=== PATIENT | female | born 1935 | race Caucasian/White ===

== ENCOUNTER → 2020-06-29 09:30 | Oncology outpatient (ONC) | payer OTHER, SELFPAY ==
--- NOTE | 2019-08-13 15:02 | ONC.MSW ---
Description: Initial Navigation T/C Activity: Called pt to introduce myself as the ONC navigator/CIVIL PROCESS SERVER, explain role of navigation, confirm that we have received her referral, and confirmed a time for her first initial consult visit w/Dr. Lu next , check-in time 1:00pm. She had no immediate needs at this time.
[2019-08-19 13:57] VITALS: BP 139/63; PULSE 51; RESP 18; TEMP 36.8; O2SAT 100
--- NOTE | 2019-08-19 14:18 | P.CONONC_ITS ---
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 Right hemicolectomy on August 01, 2019 History of present illness: Oscar Luna is a 83 year old female who is referred for further evaluation of a newly diagnosed colon cancer. Patient reports that she was hospitalized about a year ago with problem with her common bile duct and pancreas. Since that time, she has had intermittent abdominal pain involving the right upper quadrant and also the right mid to lower abdomen. She was seen by her primary physician. When symptoms did not improve, she presented to the emergency room. She had a CT scan done that showed an intussusception at the terminal ileum. A malignancy could not be excluded. She was transferred to [facility] and underwent right hemicolectomy a couple days later. Pathology from that specimen showed a 1.5 cm carcinoma was associated with a 3.2 cm adenoma. There was focal invasion of the muscularis propria. Fourteen lymph nodes were sampled all of which were negative. Postoperatively, she has had ongoing pain in the abdomen. She is taking ibuprofen or Aleve at bedtime which seems to be relieving it. Her appetite has been a little bit low. She has lost about 50 lb over the last 2 years that she attributes to poor food. She does not have much of an appetite. She denies any nausea or vomiting. She has been having 2-3 loose stools a day. She has not noticed any blood in the stool. For past medical history is notable for coronary artery disease. She has had a prior bypass. She has had a carotid endarterectomy. She has a history of type 2 diabetes and COPD. She has hyperlipidemia. She has had prior hip fracture. She has had prior spine surgery and appendectomy. Her family history is negative for colon cancer or any other malignancy. Social history: She is retired. 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 She worked with the [employer] in [place]. She quit smoking about 30 years ago. She does have occasional alcohol use. CC: Riccardo Lu MD Home Medications and Allergies Home Medications Medication Instructions Recorded Confirmed Type Fish Oil (FISH OIL~) 1,200 mg PO QDAY #0 02/18/13 08/19/19 History allopurinol 300 mg PO Q DAY #0 02/18/13 08/19/19 History cholecalciferol (vitamin D3) 2,000 unit PO QDAY #0 02/18/13 08/19/19 History [Vitamin D3] apremilast [Otezla] 30 mg PO QAM AND QPM 08/19/19 08/19/19 History hydroxyzine HCl 10 mg PO TID PRN 08/19/19 08/19/19 History levothyroxine 50 mcg PO DAILY 08/19/19 08/19/19 History Allergies Allergy/AdvReac Type Severity Reaction Status Date / Time fentanyl Allergy Severe Unconscious Verified 08/19/19 13:52 SULFA (SULFONAMIDE) Allergy Severe THROAT Uncoded 12/19/17 12:12 SWELLING PENICILLIN Allergy Unknown HIVES Uncoded 12/19/17 12:12 Review of Systems Constitutional: weight loss, decreased activity level Cardiovascular: dyspnea on exertion, no chest pain Respiratory: no shortness of breath Gastrointestinal: change in appetite, abdominal pain, diarrhea Musculoskeletal: pain Hematologic/Lymphatic: no anemia, no enlarged lymph nodes Exam Vital signs: Vital Signs Temp Pulse Resp BP Pulse Ox 08/19/19 13:57 98.2 F 51 L 18 139/63 100 Intake and Output 08/18/19 08/19/19 08/19/19 23:59 07:59 15:59 Other: Weight 62.3 kg Patient Weight 08/19/19 23:59 Weight 62.3 kg - Constitutional positive no acute distress, positive average body habitus - Routine HEENT Exam Head: Present: normocephalic, atraumatic Eye: Present: EOMI, PERRL. Absent: conjunctival icterus, scleral injection ENT: Present: mucous membranes moist, oropharynx clear - Routine Neck Exam Present: supple. Absent: lymphadenopathy, thyromegaly - Routine Respiratory Exam Present: Clear to auscultation bilaterally. Absent: rales, wheezes - Routine Cardiovascular Exam Present: RRR, S1, S2. Absent: murmur - Routine Abdominal Exam Present: soft, normoactive bowel sounds. Absent: tenderness, organomegaly, mass Comments: Her surgical incision seem to be healing well. She does have a little bit of erythema around her umbilical incision. I do not see any purulence. - Routine Extremities Exam Absent: cyanosis, clubbing, edema - Routine Back/Spine Exam Back/Spine: Absent: vertebral tenderness - Routine Skin Exam Present: intact. Absent: petechiae, rash - Routine Neurological Exam Present: alert, oriented X3 - Routine Psychiatric Exam Present: normal affect, normal thought process Assessment and Plan (1) Colon cancer Current visit: Yes Status: Acute A 83-year-old woman with a new diagnosis of stage I colon cancer. She is recovering reasonably well from her surgery. Because her disease was stage I, there is no role for adjuvant chemotherapy. Instead she will return to clinic in about 3 months for follow-up CEA. If she is doing well, we will probably check CEAs every 6 months for the 1st couple of years. She has a low enough risk of recurrence that routine CT scan would not be recommended. She will be due for colonoscopy in about a year.
--- NOTE | 2019-08-19 16:11 | ONC.SCHED ---
Left msg. for patient to schedule his f/u in November 2019
[2019-11-18 12:56] LABS: Add Manual Diff / Slide Review NO; Basophils Absolute Auto 100 /uL (0-100); Basophils Percent Auto 1.2 % (0-2); Eosinophils Absolute Auto 700 /uL (0-450); Eosinophils Percent Auto 11.8 % (2-4); Hematocrit 44.5 % (36-46); Hemoglobin 14.6 g/dL (12.0-16.0); Lymphocytes Absolute Auto 1700 /uL (1100-4500); Lymphocytes Percent Auto 29.5 % (25-40); Mean Corpuscular HGB Conc 32.8 % (30-36); Mean Corpuscular Volume 100.6 fL (80-100); Monocytes Absolute Auto 400 /uL (0-900); Monocytes Percent Auto 7.5 % (3-14); Neutrophils Absolute Auto 2900 /uL (1500-7000); Platelet Count 211 X10^3/uL (150-400); Red Blood Cell Count 4.43 X10^6/uL (4.0-5.2); Red Cell Distribution Width 15.8 % (11.6-14.8); White Blood Cell Count 5.9 X10^3/uL (4.5-11.0)
[2019-11-18 13:05] LABS: Alanine Aminotransferase 11 IU/L (<35); Albumin 4.5 g/dL (3.5-5.0); Albumin Globulin Ratio 1.5 (1.0-2.8); Alkaline Phosphatase 89 U/L (38-126); Aspartate Aminotransferase 26 IU/L (14-36); BUN Creatinine Ratio 21.9 (6-22); Bilirubin Total 0.4 mg/dL (0.2-1.3); Blood Urea Nitrogen 25 mg/dL (7-17); Calcium 10.1 mg/dL (8.4-10.2); Carbon Dioxide 27 mmol/L (22-32); Chloride 107 mmol/L (98-107); Estimated Glomerular Filt Rate 45.5 mL/min (>60); Glucose 138 mg/dL (80-110); HEMOLYSIS < 15 (0-50); Potassium 4.4 mmol/L (3.4-5.1); Sodium 141 mmol/L (137-145); Total Protein 7.5 g/dL (6.3-8.2)
[2019-11-18 13:34] LABS: Carcinoembryonic Antigen 3.3 ng/mL (0.1-3.0)
[2019-11-18 13:41] VITALS: BP 153/80; PULSE 64; RESP 18; TEMP 36.9; O2SAT 96
--- NOTE | 2019-11-18 13:52 | ONC.PN ---
PN -Subjective Interval history: Identification and Chief Complaint: 84 year old female with stage I colon cancer here for scheduled follow-up visit. History of Present Illness: Oscar Luna is a 84 year old female. She presented with intermittent abdominal pain involving the right upper quadrant and the right mid to lower abdomen for 1-2 years. When symptoms did not improve, she presented to the emergency room. She had a CT scan done that showed an intussusception at the terminal ileum. A malignancy could not be excluded. She was transferred to [place] and underwent right hemicolectomy on 08/01/2019. Pathology from that specimen showed a 1.5 cm carcinoma associated with a 3.2 cm adenoma. There was focal invasion of the muscularis propria. Fourteen lymph nodes were sampled all of which were negative. Interim Events: Since her previous visit with Dr. Lu, patient reported that she has been doing well without any new signs or symptoms. Patient especially denies any she nausea or vomiting. No abdominal pain. Patient does report diarrhea watery once a week with cramps in the lower abdomen. She denies any blood in the stool. Summary of Treatments: Right hemicolectomy on 08/01/2019 - Patient Self-Reported Symptoms SR Constitution: Night Sweats SR ears, nose, mouth, throat issues: Ears ringing, Congestion SR Skin issues: Dry skin SR Gastrointestinal issues: Diarrhea SR Endocrine issues: Cold intolerance - Additional ROS All systems PM: reviewed and no additional remarkable complaints except as stated Home Medications and Allergies Home Medications Medication Instructions Recorded Confirmed Type Fish Oil (FISH OIL~) 1,200 mg PO QDAY #0 02/18/13 11/18/19 History allopurinol 300 mg PO Q DAY #0 02/18/13 11/18/19 History cholecalciferol (vitamin D3) 2,000 unit PO QDAY #0 02/18/13 11/18/19 History [Vitamin D3] hydroxyzine HCl 10 mg PO TID PRN 08/19/19 11/18/19 History levothyroxine 50 mcg PO DAILY 08/19/19 11/18/19 History Allergies Allergy/AdvReac Type Severity Reaction Status Date / Time fentanyl Allergy Severe Unconscious Verified 08/19/19 13:52 SULFA (SULFONAMIDE) Allergy Severe THROAT Uncoded 12/19/17 12:12 SWELLING PENICILLIN Allergy Unknown HIVES Uncoded 12/19/17 12:12 Exam Vital signs: Last Vital Signs Temp 98.4 F 11/18/19 13:41 Pulse 64 11/18/19 13:41 Resp 18 11/18/19 13:41 BP 153/80 H 11/18/19 13:41 Pulse Ox 96 11/18/19 13:41 Narrative: ECOG 1 Gen: WDWN, NAD, pleasant and cooperative. Here by herself HEENT: NCAT, EOMI, PERRLA, anicteric sclera. Neck: Supple, No palpable thyromegaly or lymphadenopathy. Respiratory: CTAB, no wheezes audible. No JVD Cardiovascular: RRR, S1 and S2 normal, no M/G/R. Abdomen: Soft, NTND, BS normal, no palpable organomegaly Extremities: No LE pitting edema. Lymphatic: no palpable lymph nodes in the neck, axillae,. Neurological: AOx3, CN II-XII grossly intact. No focal motor or sensory deficit. Psychiatric: Normal affect, appropriate mood, no depression, no anxiety. Results - Labs Laboratory Last Values WBC 5.9 X10^3/uL (4.5-11.0) 11/18/19 12:11 RBC 4.43 X10^6/uL (4.0-5.2) 11/18/19 12:11 Hgb 14.6 g/dL (12.0-16.0) 11/18/19 12:11 Hct 44.5 % (36-46) 11/18/19 12:11 MCV 100.6 fL (80-100) H 11/18/19 12:11 MCH 33.0 PG (26-34) 11/18/19 12:11 MCHC 32.8 % (30-36) 11/18/19 12:11 RDW 15.8 % (11.6-14.8) H 11/18/19 12:11 Plt Count 211 X10^3/uL (150-400) 11/18/19 12:11 Neut % (Auto) 50.0 % (50-75) 11/18/19 12:11 Lymph % (Auto) 29.5 % (25-40) 11/18/19 12:11 Christian % (Auto) 7.5 % (3-14) 11/18/19 12:11 Eos % (Auto) 11.8 % (2-4) H 11/18/19 12:11 Baso % (Auto) 1.2 % (0-2) 11/18/19 12:11 Neut # (Auto) 2900 /uL (6030-4848) 11/18/19 12:11 Lymph # (Auto) 1700 /uL (8675-0444) 11/18/19 12:11 Christian # (Auto) 400 /uL (0-900) 11/18/19 12:11 Eos # (Auto) 700 /uL (0-450) H 11/18/19 12:11 Baso # (Auto) 100 /uL (0-100) 11/18/19 12:11 Sodium 141 mmol/L (137-145) 11/18/19 12:11 Potassium 4.4 mmol/L (3.4-5.1) 11/18/19 12:11 Chloride 107 mmol/L (98-107) 11/18/19 12:11 Carbon Dioxide 27 mmol/L (22-32) 11/18/19 12:11 BUN 25 mg/dL (7-17) H 11/18/19 12:11 Creatinine 1.14 mg/dL (0.52-1.04) H 11/18/19 12:11 Estimated GFR 45.5 mL/min (>60) L 11/18/19 12:11 BUN/Creatinine Ratio 21.9 (6-22) 11/18/19 12:11 Glucose 138 mg/dL (80-110) H 11/18/19 12:11 Calcium 10.1 mg/dL (8.4-10.2) 11/18/19 12:11 Total Bilirubin 0.4 mg/dL (0.2-1.3) 11/18/19 12:11 AST 26 IU/L (14-36) 11/18/19 12:11 ALT 11 IU/L (<35) 11/18/19 12:11 Alkaline Phosphatase 89 U/L (38-126) 11/18/19 12:11 Total Protein 7.5 g/dL (6.3-8.2) 11/18/19 12:11 Albumin 4.5 g/dL (3.5-5.0) 11/18/19 12:11 Globulin 3.0 g/dL (1.7-4.1) 11/18/19 12:11 Albumin/Globulin Ratio 1.5 (1.0-2.8) 11/18/19 12:11 Carcinoembryonic Ag 3.3 ng/mL (0.1-3.0) H 11/18/19 12:11 Assessment and Plan (1) Colon cancer Overview: Oscar Luna is a 84 year old female. She presented with intermittent abdominal pain involving the right upper quadrant and the right mid to lower abdomen fr 1-2 years. When symptoms did not improve, she presented to the emergency room, and was found to have an intussusception at the terminal ileum on CT scan. She underwent right hemicolectomy on 08/01/2019. Pathology from that specimen showed a 1.5 cm carcinoma was associated with a 3.2 cm adenoma. There was focal invasion of the muscularis propria. Fourteen lymph nodes were sampled all of which were negative. Assessment: I reviewed the laboratory tests with the patient. No anemia noted. The CEA level was 3.3 compared to 5.4 right after the surgery. Talked with her that I will continue current active surveillance. Patient is due for a colonoscopy in May. I talked with her that when she comes back, I will order colonoscopy. She voiced understanding. Plan: RTC in 6 months, CBC, CMP, CEA
[2020-06-16 09:55] LABS: Add Manual Diff / Slide Review NO; Basophils Absolute Auto 100 /uL (0-100); Basophils Percent Auto 1.2 % (0-2); Eosinophils Absolute Auto 400 /uL (0-450); Eosinophils Percent Auto 6.9 % (2-4); Hematocrit 39.5 % (36-46); Hemoglobin 13.1 g/dL (12.0-16.0); Lymphocytes Absolute Auto 1500 /uL (1100-4500); Lymphocytes Percent Auto 29.1 % (25-40); Mean Corpuscular HGB Conc 33.1 % (30-36); Mean Corpuscular Hemoglobin 32.3 PG (26-34); Mean Corpuscular Volume 97.7 fL (80-100); Monocytes Absolute Auto 500 /uL (0-900); Monocytes Percent Auto 8.9 % (3-14); Neutrophils Absolute Auto 2900 /uL (1500-7000); Neutrophils Percent Auto 53.9 % (50-75); Platelet Count 192 X10^3/uL (150-400); Red Blood Cell Count 4.05 X10^6/uL (4.0-5.2); Red Cell Distribution Width 14.4 % (11.6-14.8); White Blood Cell Count 5.3 X10^3/uL (4.5-11.0)
[2020-06-16 10:14] LABS: Alanine Aminotransferase 11 IU/L (<35); Albumin Globulin Ratio 1.5 (1.0-2.8); Alkaline Phosphatase 73 U/L (38-126); Aspartate Aminotransferase 24 IU/L (14-36); BUN Creatinine Ratio 22.4 (6-22); Bilirubin Total 0.5 mg/dL (0.2-1.3); Blood Urea Nitrogen 32 mg/dL (7-17); Carbon Dioxide 30 mmol/L (22-32); Chloride 103 mmol/L (98-107); Globulin 2.6 g/dL (1.7-4.1); Glucose 106 mg/dL (80-110); HEMOLYSIS < 15 (0-50); Potassium 4.9 mmol/L (3.4-5.1); Sodium 137 mmol/L (137-145); Total Protein 6.6 g/dL (6.3-8.2)
[2020-06-16 10:44] LABS: Carcinoembryonic Antigen 2.6 ng/mL (0.1-3.0)
[2020-06-29 10:22] VITALS: BP 135/67; PULSE 80; RESP 16; O2SAT 100
--- NOTE | 2020-06-29 10:59 | ONC.PN ---
PN -Subjective Interval history: Identification and Chief Complaint: 84 year old female with stage I colon cancer here for scheduled follow-up visit. History of Present Illness: Oscar Luna is a 84 year old female. She presented with intermittent abdominal pain involving the right upper quadrant and the right mid to lower abdomen for 1-2 years. When symptoms did not improve, she presented to the emergency room. She had a CT scan done that showed an intussusception at the terminal ileum. A malignancy could not be excluded. She was transferred to [place] and underwent right hemicolectomy on 08/01/2019. Pathology from that specimen showed a 1.5 cm carcinoma associated with a 3.2 cm adenoma. There was focal invasion of the muscularis propria. Fourteen lymph nodes were sampled all of which were negative. The patient states that she did not have a colonoscopy in conjunction with all of this. Today she presents for a follow-up visit. She notes that over the last 2 months she has had a return of diarrhea. This was this was a symptom present at the time of her original diagnosis. Over the last 1 month she has had a return of abdominal pain which was also present at the time of diagnosis. The abdominal pain does not wake her up at night although the diarrhea does. She has not had any anorexia, unintended weight loss, cough, shortness of breath, nausea, vomiting, bleeding. All other systems are negative. She also reports a history of falls. She has had multiple falls, most recently in March of 2020. She describes her gait as unsteady and she feels weak. She uses a walker. She gets out of the house to go to the grocery store. She pays the bills, drives, and feels like she does not have any particular memory issues. However, she uses a walker, especially when she is out of the house and is very worried about additional falls. She does not think she could walk around the block without having to stop and rest due to weakness. Her past medical history is reviewed from her previous notes. - Patient Self-Reported Symptoms SR Constitution: Night Sweats SR ears, nose, mouth, throat issues: Ears ringing, Congestion SR Skin issues: Dry skin SR Gastrointestinal issues: Diarrhea SR Endocrine issues: Cold intolerance Home Medications and Allergies Home Medications Medication Instructions Recorded Confirmed Type Fish Oil (FISH OIL~) 1,200 mg PO QDAY #0 02/18/13 06/29/20 History allopurinol 300 mg PO Q DAY #0 02/18/13 06/29/20 History cholecalciferol (vitamin D3) 2,000 unit PO QDAY #0 02/18/13 06/29/20 History [Vitamin D3] hydroxyzine HCl 10 mg PO TID PRN 08/19/19 06/29/20 History levothyroxine 50 mcg PO DAILY 08/19/19 06/29/20 History Allergies Allergy/AdvReac Type Severity Reaction Status Date / Time fentanyl Allergy Severe Unconscious Verified 08/19/19 13:52 SULFA (SULFONAMIDE) Allergy Severe THROAT Uncoded 12/19/17 12:12 SWELLING PENICILLIN Allergy Unknown HIVES Uncoded 12/19/17 12:12 Exam Vital signs: Vital Signs Pulse Resp BP Pulse Ox 06/29/20 10:22 80 16 135/67 100 Intake and Output 06/28/20 06/29/20 06/29/20 23:59 07:59 15:59 Other: Weight 67.8 kg Patient Weight 06/29/20 23:59 Weight 67.8 kg Narrative: She was awake, alert orient x3. She was fully ambulatory and in no acute distress. There was no lymphadenopathy in the cervical, supraclavicular axillary regions. Lungs were clear without wheezes or rales. There was no evidence of pleural effusion on exam. Heart showed a regular rate and rhythm without murmur, gallop or rub. The abdomen is soft with some left upper quadrant tenderness but no palpable masses or organomegaly. There was no evidence of phlebitis in the lower extremities. Results - Labs Laboratory Last Values WBC 5.3 X10^3/uL (4.5-11.0) 06/16/20 09:46 RBC 4.05 X10^6/uL (4.0-5.2) 06/16/20 09:46 Hgb 13.1 g/dL (12.0-16.0) 06/16/20 09:46 Hct 39.5 % (36-46) 06/16/20 09:46 MCV 97.7 fL (80-100) 06/16/20 09:46 MCH 32.3 PG (26-34) 06/16/20 09:46 MCHC 33.1 % (30-36) 06/16/20 09:46 RDW 14.4 % (11.6-14.8) 06/16/20 09:46 Plt Count 192 X10^3/uL (150-400) 06/16/20 09:46 Neut % (Auto) 53.9 % (50-75) 06/16/20 09:46 Lymph % (Auto) 29.1 % (25-40) 06/16/20 09:46 Shasta % (Auto) 8.9 % (3-14) 06/16/20 09:46 Eos % (Auto) 6.9 % (2-4) H 06/16/20 09:46 Baso % (Auto) 1.2 % (0-2) 06/16/20 09:46 Neut # (Auto) 2900 /uL (7294-6562) 06/16/20 09:46 Lymph # (Auto) 1500 /uL (3863-5856) 06/16/20 09:46 Shasta # (Auto) 500 /uL (0-900) 06/16/20 09:46 Eos # (Auto) 400 /uL (0-450) 06/16/20 09:46 Baso # (Auto) 100 /uL (0-100) 06/16/20 09:46 Sodium 137 mmol/L (137-145) 06/16/20 09:46 Potassium 4.9 mmol/L (3.4-5.1) 06/16/20 09:46 Chloride 103 mmol/L (98-107) 06/16/20 09:46 Carbon Dioxide 30 mmol/L (22-32) 06/16/20 09:46 BUN 32 mg/dL (7-17) H 06/16/20 09:46 Creatinine 1.43 mg/dL (0.52-1.04) H 06/16/20 09:46 Estimated GFR 35.0 mL/min (>60) L 06/16/20 09:46 BUN/Creatinine Ratio 22.4 (6-22) H 06/16/20 09:46 Glucose 106 mg/dL (80-110) 06/16/20 09:46 Calcium 9.0 mg/dL (8.4-10.2) 06/16/20 09:46 Total Bilirubin 0.5 mg/dL (0.2-1.3) 06/16/20 09:46 AST 24 IU/L (14-36) 06/16/20 09:46 ALT 11 IU/L (<35) 06/16/20 09:46 Alkaline Phosphatase 73 U/L (38-126) 06/16/20 09:46 Total Protein 6.6 g/dL (6.3-8.2) 06/16/20 09:46 Albumin 4.0 g/dL (3.5-5.0) 06/16/20 09:46 Globulin 2.6 g/dL (1.7-4.1) 06/16/20 09:46 Albumin/Globulin Ratio 1.5 (1.0-2.8) 06/16/20 09:46 Carcinoembryonic Ag 2.6 ng/mL (0.1-3.0) 06/16/20 09:46 Assessment and Plan (1) Colon cancer Ms. Luna has a good prognosis stage I colon cancer. She does have return of diarrhea the last 2 months including with urgency incontinence. This was a symptom present at the time of her original diagnosis. She is quite concerned about this. She would be due for a colonoscopy 1 year after her original stone surgery according to standard NCCN guidelines for follow-up. In addition, she states that she does not recall a colonoscopy as part of her original workup and so a completion colonoscopy would be in order. Also, with the change in her bowel habits, a colonoscopy would be indicated. She will be referred to [facility] to get her set up for a colonoscopy. I told her she did have a driver education road instructor for this test. She is also having abdominal pain. This was present at the time of her original diagnosis. She states that it is the same pain and she is quite concerned about a period will get her set up for a CT scan without contrast because of her renal insufficiency. She will return after that in the colonoscopy have been accomplished and further plans will be made at that time. She also has had falls. We discussed the rationale for physical therapy. She was interested in this and will refer to physical therapy and group pill. She had several questions that were answered in detail I personally spent 26 minutes in today's [id number] visit with greater than 50% of the time spent in counseling regarding the issues outlined above.
--- NOTE | 2020-07-05 13:19 | ONC.SCHED ---
Sent referral to [facility] per patient request. Savannah Guajardo checked with insurance regarding no PA needed for referral; she did not document it but said she checked it. Upon calling the PT office they said they take the insurance and gave me the fax number.
== END ==
PROVIDERS: PCP Family Medicine; Visit Provider Internal Medicine Hematology & Oncology
DX: C18.8 Malignant neoplasm of overlapping sites of colon (principal); N28.9 Disorder of kidney and ureter, unspecified; R19.7 Diarrhea, unspecified; R10.9 Unspecified abdominal pain; R15.2 Fecal urgency; Z91.81 History of falling; Z90.49 Acquired absence of other specified parts of digestive tract
CPT/HCPCS: 36415; 80053; 82378; 85025; 99204; 99214

== ENCOUNTER → 2020-07-14 09:42 | Outpatient (CLI) | payer OTHER, SELFPAY ==
--- NOTE | 2020-07-14 10:08 | DI.CT.S_ITS ---
PROCEDURE: CT CHEST ABD PEL WO CON INDICATIONS: History of colon cancer with recurrent abd pain and diarrhea TECHNIQUE: After the administration of oral contrast, 5 mm thick sections acquired from the lung apices to the symphysis pubis. 5 mm thick coronal and sagittal reformats acquired, with additional 7 mm coronal MIP reformats through the lungs. For radiation dose reduction, the following was used: automated exposure control, adjustment of mA and/or kV according to patient size. COMPARISON: None. FINDINGS: Image quality: Limited by the absence of intravenous contrast.. CHEST: Lungs and pleura: No acute pulmonary opacities. No pleural effusions or pneumothorax. Central and peripheral airways are patent are normal in caliber. There is mild linear scarring each lung base. No evidence of metastatic disease. Mediastinum: Heart size is normal. No pericardial effusion. No mediastinal adenopathy by CT size criteria. Thoracic aorta and central pulmonary arteries are normal in size. Esophagus is normal in caliber. No hiatal hernia. Chest wall: No axillary or supraclavicular adenopathy by size criteria. Thyroid gland is not well seen by this noncontrast technique . ABDOMEN: Solid organs: Liver is normal in size. Gallbladder appears normal . Pancreas is normal in contours. Spleen is normal in size. No adrenal nodules. Both kidneys are normal in size, without hydronephrosis or nephrolithiasis. Peritoneum and bowel: Small and large bowel loops are normal in caliber and wall thickness. No free fluid or air. Nodes and vessels: No retroperitoneal or mesenteric adenopathy by size criteria. Aorta and inferior vena cava are normal in size. Miscellaneous: No ventral hernias. PELVIS: Genitourinary: Bladder wall thickness is normal. Miscellaneous: No inguinal hernias or adenopathy. Note is made of metal artifact from a right total hip arthroplasty. Bones: No suspicious bony lesions. No vertebral body compression fractures. IMPRESSION: The study quality is somewhat limited by the absence of intravenous contrast. Oral contrast was utilized. There is no sign of mass lesion or adenopathy when this is taken into account. Limited quality visualization through the lower 3rd of the pelvis due to right total hip arthroplasty and cerclage fixation devices. Dictated by: Ovidio Morfin M.D. on 07/14/2020 at 11:21 Approved by: Ovidio Morfin M.D. on 07/14/2020 at 11:24
== END ==
PROVIDERS: PCP Family Medicine; Referring Provider Internal Medicine; Visit Provider Internal Medicine
DX: C18.9 Malignant neoplasm of colon, unspecified (principal); R19.7 Diarrhea, unspecified; R10.9 Unspecified abdominal pain; Z96.641 Presence of right artificial hip joint
CPT/HCPCS: 71250; 74176

== ENCOUNTER → 2020-08-17 09:08 | Outpatient (CLI) | payer OTHER, SELFPAY ==
[2020-08-17 10:52] LABS: COVID19 -Nasal RAPID Negative (Negative)
== END ==
PROVIDERS: PCP Family Medicine; Visit Provider Surgery
DX: Z01.812 Encounter for preprocedural laboratory examination (principal); Z20.828 Contact with and (suspected) exposure to other viral communicable diseases
CPT/HCPCS: 87635; 99211

== ENCOUNTER 2020-08-18 08:58 | Day surgery (SDC) | payer OTHER, SELFPAY ==
[2020-08-18] VITALS (10 sets, daily range): BP systolic 95–168; BP diastolic 38–73; PULSE 65–79; RESP 13–18; TEMP 36–37.6; O2SAT 96–100; BMI 29.6
--- NOTE | 2020-08-18 | PATH_ITS ---
[facility] Accession Number: [id number] . 01 Material submitted: . PART A: colon - ANASTOMOSIS BIOPSIES PART B: colon - RANDOM BIOPSIES, COLON . 01 Clinical history: . SDC . 02 Diagnosis: A. Anastomosis, Biopsies: Small bowel mucosa with no diagnostic abnormality. Negative for active inflammation, granulomata, dysplasia or malignancy. . B. Random Colon, Biopsies: Colonic mucosa with no diagnostic abnormality. Negative for active, chronic, and microscopic colitis. Negative for dysplasia and malignancy. MRV 08/20/2020 1258 Local . 02 Electronically signed: . Constantino Mendoza MD, PhD, Pathologist NPI- [id number] . 01 Gross description: . Part A: ANASTOMOSIS BIOPSIES: Received in formalin are 2 fragment(s) of simpson, soft tissue measuring 0.4 x 0.2 x 0.1 cm to 0.3 x 0.2 x 0.1 cm submitted entirely in 1 cassette(s) Part B: RANDOM BIOPSIES, COLON: Received in formalin are 6 fragment(s) of simpson, soft tissue measuring 0.3 x 0.3 x 0.1 cm to 0.1 x 0.1 x 0.1 cm submitted entirely in 1 cassette(s) /QBJ 08/19/2020 0934 Local . 02 Pathologist provided ICD-10: Z85.038 . 02 CPT . 462863, [id number] Performed at: 01 [facility] [address], [place], [place] [id number] MD Gerson Anton MD Phone: [phone] Performed at: 02 [facility] [address] [place], [place] [id number] MD Seema Martinez MD Phone: [phone]
[2020-08-18] MEDS: LACTATED RINGERS 1,000 ML 42 ML IV (09:27)
--- NOTE | 2020-08-18 10:12 | PM.PREOP ---
Pre-operative Note COVID-19 COVID-19 status: Negative Result date/Date tested (Pos, Neg/Pending): 08/17/20 Interval Note History & Physical reviewed/Exam performed by Physician: Yes Changes to H&P: No
--- NOTE | 2020-08-18 10:58 | P.OP.ENDO_ITS ---
Operative Date/Time/Diagnoses Date of procedure: 08/18/20 Time of procedure: 10:58 Pre-op diagnosis: 1 year since right hemicolectomy for cancer; chronic diarrhea Post-op diagnosis: other (normal appearing anastomosis; no visible evidence of recurrence; normal appearing colonic and small bowel mucosa; diverticulosis) Procedure & Clinicians Study performed: Colonoscopy biopsies with standard forceps Same procedure as scheduled: Yes Indications: Chronic diarrhea, colon cancer, status post right hemicolectomy 1 year ago, right upper quadrant pain, the patient has had a severe reaction to fentanyl in the past, and is medically fragile. Therefore we have requested the anesthesiologist to give her propofol for sedation and to manage her airway, sedation, and cardiac status throughout the procedure. Surgeon: Ann-Marie Valle Procedure Notes SCOAP/Timeout: Performed Procedure in detail: The patient was brought to the room and placed in left lateral decubitus position with all bony prominences padded. A time-out was pe rformed and then the patient was put under anesthesia by . Once adequately sedated, the procedure was begun. A rectal exam was performed revealing no abnormalities. The colonoscope was then introduced to the rectum and advanced to the Ileocolic anastomosis. The anastomosis was identified, and appeared healthy and normal, without stenosis. The small bowel in colonic mucosa were biopsied at the anastomosis. The scope was then retracted while rotating side to side and examining each mucosal fold. Random biopsies were taken throughout the colon to rule out microscopic colitis. Moderate diverticulosis seen in the left side of the colon, but no evidence of acute diverticulitis. At the conclusion of the procedure retroflexion was performed and small grade 1-2 internal hemorrhoids without stigmata of bleeding were seen. The scope was then withdrawn from the rectum the procedure was concluded. The patient tolerated the procedure well and was transferred to the PACU in stable condition. Scope withdrawal time: 12 Findings: diverticulosis and other findings (Normal appearing anastomosis, normal appearing colonic mucosa) Specimen(s): other (Biopsies of Anastomosis, random biopsies throughout the colon to rule out microscopic colitis) Complications: none Impression: Normal appearing anastomosis, normal appearing colon Post-procedure Recommendations: Colonscopy in 5 years and Other recommendation (Follow-up in the office in 1-2 weeks in to discuss next steps to evaluate right upper quadrant pain) Follow up: weeks (2) Disposition: PACU
--- NOTE | 2020-08-18 12:09 | SUR.PHASEII ---
Pt doing well post colonscopy, VSS, denied any pain or nausea. Able to pass flatus. Abdomen soft. Discharge instructions discussed with patient, all questions answered. Patient stated that she did not have anyone to be home with her overnight and that she lives alone. Spoke with the patient's niece who stated she would make sure patient had someone to be with her overnight. IV access removed, catheter intact. Pt transported via W/C to private vehicle.
== END 2020-08-18 12:09 | disposition home or self-care (01) ==
PROVIDERS: PCP Family Medicine; Referring Provider Surgery; Visit Provider Surgery
PROC: 0DJD8ZZ Inspection of Lower Intestinal Tract, Via Natural or Artificial Opening Endoscopic (ICD-10-PCS; CPT 45378; principal; 2020-08-18 10:15)
DX: K52.9 Noninfective gastroenteritis and colitis, unspecified (principal); Z85.038 Personal history of other malignant neoplasm of large intestine; E03.9 Hypothyroidism, unspecified; I10 Essential (primary) hypertension; I25.10 Atherosclerotic heart disease of native coronary artery without angina pectoris; Z88.5 Allergy status to narcotic agent; Z90.49 Acquired absence of other specified parts of digestive tract; K64.0 First degree hemorrhoids; K57.30 Diverticulosis of large intestine without perforation or abscess without bleeding
CPT/HCPCS: 45380; J2250; J2274; J2704